=== PATIENT | male | born 1955 | race Caucasian/White ===

== ENCOUNTER 2017-12-31 07:26 | Inpatient (IN) | payer MEDICARE ==
[2017-12-31] MEDS: ASPIRIN 81 MG ENTERIC TAB PO (09:00)
[2017-12-31] MEDS: NS 1,000 ML IV ×2 (09:17→14:01)
[2017-12-31] MEDS: ONDANSETRON 4MG/2ML VIAL (J2405) IV ×3 (09:17→21:05)
[2017-12-31 09:38] LABS: BASO % 0.4 % (0.0-1.0); EOS # 0.2 10^3/uL (0.0-0.50); EOS % 2.9 % (0.0-3.0); HEMOGLOBIN 15.1 g/dl (13.5-17.5); IMMATURE GRANULOCYTE % 0.1 % (0-3.0); LYMPH % 11.5 % (24.0-44.0); MEAN CORPUSCULAR HEMOGLOBIN 29.1 pg (27.0-33.0); MEAN CORPUSCULAR HGB CONC 33.6 g/dl (32.0-36.5); MEAN CORPUSCULAR VOLUME 86.7 fl (80.0-96.0); MONO # 0.7 10^3/uL (0.0-0.8); NEUTROPHILS # 6.4 10^3/uL (1.8-7.7); NEUTROPHILS % 77.1 % (36.0-66.0); PLATELET COUNT, AUTOMATED 307 10^3/uL (150-450); RED BLOOD COUNT 5.19 10^6/uL (4.30-6.10); RED CELL DISTRIBUTION WIDTH 13.2 % (11.5-14.5); WHITE BLOOD COUNT 8.3 10^3/uL (4.0-10.0)
[2017-12-31 09:53] LABS: INR 1.03; PROTHROMBIN TIME 13.6 SECONDS (12.4-14.5)
[2017-12-31 09:54] LABS: PARTIAL THROMBOPLASTIN TIME 24.1 SECONDS (26.8-37.9)
[2017-12-31 09:56] LABS: ALBUMIN 3.6 GM/DL (3.2-5.2); ALBUMIN/GLOBULIN RATIO 0.73 (1.00-1.93); ALKALINE PHOSPHATASE 140 U/L (45-117); ALT/SGPT 33 U/L (12-78); ANION GAP 9 MEQ/L (8-16); AST/SGOT 20 U/L (7-37); BILIRUBIN,DIRECT 0.1 MG/DL (0.0-0.2); BILIRUBIN,TOTAL 0.6 MG/DL (0.2-1.0); BLOOD UREA NITROGEN 43 MG/DL (7-18); CALCIUM LEVEL 9.9 MG/DL (8.8-10.2); CARBON DIOXIDE LEVEL 25 MEQ/L (21-32); CHLORIDE LEVEL 103 MEQ/L (98-107); CPK CREATINE PHOSPHOKINASE 46 U/L (39-308); CREATININE FOR GFR 2.46 MG/DL (0.70-1.30); GLOMERULAR FILTRATION RATE 28.5 (>49); GLUCOSE, FASTING 124 MG/DL (70-100); LIPASE 348 U/L (73-393); POTASSIUM SERUM 3.3 MEQ/L (3.5-5.1); SODIUM LEVEL 137 MEQ/L (136-145); TOTAL PROTEIN 8.5 GM/DL (6.4-8.2); TROPONIN I < 0.02 NG/ML (< 0.10)
[2017-12-31 09:57] LABS: CK-MB VALUE MASS < 1.0 NG/ML (<3.6); MB/CK RELATIVE INDEX 2.17 (< OR =4)
[2017-12-31] MEDS: GASTROGRAFIN SOLUTION 30ML (Q9963) PO ×4 (10:20→11:50)
[2017-12-31 10:44] LABS: LACTIC ACID SEPSIS PROTOCOL 1.7 MMOL/L (0.4-2.0)
[2017-12-31] MEDS ORDERED: GASTROGRAFIN SOLUTION 30ML (Q9963) PO (10:50)
[2017-12-31] MEDS: MORPHINE 4 MG/ML 1ML VIAL/SYRINGE (J2270) IV (14:01)
[2017-12-31] MEDS ORDERED: IPRATROPIUM 0.5MG/ALBUTEROL 2.5MG INH SOL UD 3ML (DUONEB)(J7620) INH (14:45)
[2017-12-31] MEDS ORDERED: hydrOXYzine 25 MG TAB PO (14:45)
[2017-12-31] MEDS ORDERED: GABAPENTIN 300 MG CAP PO (14:45)
[2017-12-31] MEDS: PANTOPRAZOLE 40MG INJ (PROTONIX) (C9113) IV (17:04)
[2017-12-31] MEDS: KCL 20MEQ IN D5/0.45NS 1000ML 1,000 ML IV (17:05)
[2017-12-31] MEDS: PIPERACILLIN/TAZOBACTAM SOD 3.375 GM in D5W MINI-BAG PLUS 50 ML IV ×2 (17:05→21:05)
[2017-12-31] MEDS: cloNIDine 0.1 MG TAB PO (17:24)
[2017-12-31] MEDS: METOPROLOL TART 12.5 MG PER 1/2 TAB PO (22:07)
[2017-12-31] MEDS: SENOKOT S TAB PO (22:07)
[2017-12-31] MEDS: HEPARIN SOD (PORCINE) 5000 UNITS/ML VIAL SC ×2 (22:07→22:08)
[2017-12-31] MEDS: METHOCARBAMOL 500 MG TAB PO (22:07)
[2017-12-31] MEDS: CHLORTHALIDONE 12.5MG PER 1/2 TABLET PO (22:07)
[2017-12-31] MEDS: amLODIPine 5 MG TAB PO (22:08)
[2017-12-31] MEDS: ACETAMINOPHEN TAB 650MG DOSE (2X325MG) PO (22:09)
[2018-01-01] MEDS: KCL 20MEQ IN D5/0.45NS 1000ML 1,000 ML IV ×3 (03:13→14:53)
[2018-01-01] MEDS: PIPERACILLIN/TAZOBACTAM SOD 3.375 GM in D5W MINI-BAG PLUS 50 ML IV ×4 (03:22→21:56)
[2018-01-01] MEDS: HEPARIN SOD (PORCINE) 5000 UNITS/ML VIAL SC ×3 (05:11→21:56)
[2018-01-01] MEDS: ONDANSETRON 4MG/2ML VIAL (J2405) IV ×2 (05:39→12:11)
[2018-01-01 06:40] LABS: HEMATOCRIT 37.6 % (42.0-52.0); MEAN CORPUSCULAR HEMOGLOBIN 29.6 pg (27.0-33.0); PLATELET COUNT, AUTOMATED 263 10^3/uL (150-450); RED BLOOD COUNT 4.32 10^6/uL (4.30-6.10); RED CELL DISTRIBUTION WIDTH 13.2 % (11.5-14.5); WHITE BLOOD COUNT 6.7 10^3/uL (4.0-10.0)
[2018-01-01 06:58] LABS: HEMOGLOBIN 12.8 g/dl (13.5-17.5)
[2018-01-01 07:00] LABS: ANION GAP 8 MEQ/L (8-16); BLOOD UREA NITROGEN 45 MG/DL (7-18); CALCIUM LEVEL 9.1 MG/DL (8.8-10.2); CARBON DIOXIDE LEVEL 26 MEQ/L (21-32); CHLORIDE LEVEL 105 MEQ/L (98-107); CREATININE FOR GFR 2.78 MG/DL (0.70-1.30); GLOMERULAR FILTRATION RATE 24.8 (>49); GLUCOSE, FASTING 118 MG/DL (70-100); POTASSIUM SERUM 3.9 MEQ/L (3.5-5.1); SODIUM LEVEL 139 MEQ/L (136-145)
[2018-01-01 07:03] LABS: LACTIC ACID SEPSIS PROTOCOL 0.9 MMOL/L (0.4-2.0)
[2018-01-01] MEDS: MORPHINE 4 MG/ML 1ML VIAL/SYRINGE (J2270) IV ×4 (08:29→22:08)
[2018-01-01] MEDS: SENOKOT S TAB PO ×2 (09:23→21:55)
[2018-01-01] MEDS: ASPIRIN 81 MG ENTERIC TAB PO (09:23)
[2018-01-01] MEDS: LISINOPRIL 40 MG TAB PO (09:23)
[2018-01-01] MEDS: METOPROLOL TART 12.5 MG PER 1/2 TAB PO ×2 (09:23→21:56)
[2018-01-01] MEDS: MELOXICAM (MOBIC) 7.5 MG TAB PO (09:24)
[2018-01-01] MEDS: PANTOPRAZOLE 40MG INJ (PROTONIX) (C9113) IV (09:24)
[2018-01-01 14:09] LABS: BEDSIDE GLUCOSE 113 MG/DL (80-115)
[2018-01-01] MEDS: METHOCARBAMOL 500 MG TAB PO (21:55)
[2018-01-01] MEDS: amLODIPine 5 MG TAB PO (21:55)
[2018-01-01] MEDS: CHLORTHALIDONE 12.5MG PER 1/2 TABLET PO (21:56)
[2018-01-02] MEDS: ONDANSETRON 4MG/2ML VIAL (J2405) IV ×2 (00:37→08:06)
[2018-01-02] MEDS: KCL 20MEQ IN D5/0.45NS 1000ML 1,000 ML IV ×4 (00:37→16:56)
[2018-01-02] MEDS: PIPERACILLIN/TAZOBACTAM SOD 3.375 GM in D5W MINI-BAG PLUS 50 ML IV ×4 (04:33→21:15)
[2018-01-02] MEDS: HEPARIN SOD (PORCINE) 5000 UNITS/ML VIAL SC ×3 (05:05→21:15)
[2018-01-02 06:19] LABS: HEMATOCRIT 33.7 % (42.0-52.0); HEMOGLOBIN 11.5 g/dl (13.5-17.5); MEAN CORPUSCULAR HEMOGLOBIN 29.4 pg (27.0-33.0); MEAN CORPUSCULAR HGB CONC 34.1 g/dl (32.0-36.5); MEAN CORPUSCULAR VOLUME 86.2 fl (80.0-96.0); PLATELET COUNT, AUTOMATED 221 10^3/uL (150-450); RED BLOOD COUNT 3.91 10^6/uL (4.30-6.10); RED CELL DISTRIBUTION WIDTH 13.1 % (11.5-14.5); WHITE BLOOD COUNT 5.6 10^3/uL (4.0-10.0)
[2018-01-02 06:40] LABS: ANION GAP 6 MEQ/L (8-16); BLOOD UREA NITROGEN 31 MG/DL (7-18); CALCIUM LEVEL 8.9 MG/DL (8.8-10.2); CARBON DIOXIDE LEVEL 26 MEQ/L (21-32); CHLORIDE LEVEL 105 MEQ/L (98-107); CREATININE FOR GFR 2.32 MG/DL (0.70-1.30); GLOMERULAR FILTRATION RATE 30.5 (>49); GLUCOSE, FASTING 114 MG/DL (70-100); POTASSIUM SERUM 3.5 MEQ/L (3.5-5.1); SODIUM LEVEL 137 MEQ/L (136-145)
[2018-01-02] MEDS: ASPIRIN 81 MG ENTERIC TAB PO (08:04)
[2018-01-02] MEDS: PANTOPRAZOLE 40MG INJ (PROTONIX) (C9113) IV (08:06)
[2018-01-02] MEDS: LISINOPRIL 40 MG TAB PO (08:06)
[2018-01-02] MEDS: METOPROLOL TART 12.5 MG PER 1/2 TAB PO ×2 (08:08→21:15)
[2018-01-02] MEDS: SENOKOT S TAB PO ×2 (08:08→21:00)
[2018-01-02] MEDS: MELOXICAM (MOBIC) 7.5 MG TAB PO (08:17)
[2018-01-02] MEDS: METHOCARBAMOL 500 MG TAB PO (21:14)
[2018-01-02] MEDS: amLODIPine 5 MG TAB PO (21:14)
[2018-01-02] MEDS: CHLORTHALIDONE 12.5MG PER 1/2 TABLET PO (21:14)
[2018-01-03] MEDS: PIPERACILLIN/TAZOBACTAM SOD 3.375 GM in D5W MINI-BAG PLUS 50 ML IV ×4 (03:25→21:00)
[2018-01-03] MEDS: KCL 20MEQ IN D5/0.45NS 1000ML 1,000 ML IV ×2 (03:25→09:32)
[2018-01-03 06:12] LABS: HEMATOCRIT 37.1 % (42.0-52.0); HEMOGLOBIN 12.5 g/dl (13.5-17.5); MEAN CORPUSCULAR HEMOGLOBIN 28.7 pg (27.0-33.0); MEAN CORPUSCULAR HGB CONC 33.7 g/dl (32.0-36.5); MEAN CORPUSCULAR VOLUME 85.3 fl (80.0-96.0); PLATELET COUNT, AUTOMATED 261 10^3/uL (150-450); RED BLOOD COUNT 4.35 10^6/uL (4.30-6.10); RED CELL DISTRIBUTION WIDTH 12.7 % (11.5-14.5)
[2018-01-03 06:34] LABS: ANION GAP 5 MEQ/L (8-16); BLOOD UREA NITROGEN 16 MG/DL (7-18); CALCIUM LEVEL 9.1 MG/DL (8.8-10.2); CARBON DIOXIDE LEVEL 27 MEQ/L (21-32); CHLORIDE LEVEL 106 MEQ/L (98-107); CREATININE FOR GFR 1.83 MG/DL (0.70-1.30); GLOMERULAR FILTRATION RATE 40.1 (>49); GLUCOSE, FASTING 124 MG/DL (70-100); POTASSIUM SERUM 3.8 MEQ/L (3.5-5.1); SODIUM LEVEL 138 MEQ/L (136-145)
[2018-01-03] MEDS: HEPARIN SOD (PORCINE) 5000 UNITS/ML VIAL SC ×3 (06:36→21:00)
[2018-01-03] MEDS: SENOKOT S TAB PO ×2 (09:00→20:59)
[2018-01-03] MEDS: ASPIRIN 81 MG ENTERIC TAB PO (09:00)
[2018-01-03] MEDS: METOPROLOL TART 12.5 MG PER 1/2 TAB PO ×2 (09:33→20:59)
[2018-01-03] MEDS: LISINOPRIL 40 MG TAB PO (09:33)
[2018-01-03] MEDS: MELOXICAM (MOBIC) 7.5 MG TAB PO (09:34)
[2018-01-03] MEDS: PANTOPRAZOLE 40MG INJ (PROTONIX) (C9113) IV (09:34)
[2018-01-03] MEDS: ONDANSETRON 4MG/2ML VIAL (J2405) IV (09:42)
[2018-01-03] MEDS: CHLORTHALIDONE 12.5MG PER 1/2 TABLET PO (20:58)
[2018-01-03] MEDS: amLODIPine 5 MG TAB PO (20:59)
[2018-01-03] MEDS: METHOCARBAMOL 500 MG TAB PO (20:59)
[2018-01-04] MEDS: PIPERACILLIN/TAZOBACTAM SOD 3.375 GM in D5W MINI-BAG PLUS 50 ML IV ×2 (03:29→09:54)
[2018-01-04] MEDS: KCL 20MEQ IN D5/0.45NS 1000ML 1,000 ML IV (05:24)
[2018-01-04] MEDS: HEPARIN SOD (PORCINE) 5000 UNITS/ML VIAL SC (05:24)
[2018-01-04 06:33] LABS: HEMATOCRIT 35.3 % (42.0-52.0); HEMOGLOBIN 11.9 g/dl (13.5-17.5); MEAN CORPUSCULAR HEMOGLOBIN 29.2 pg (27.0-33.0); MEAN CORPUSCULAR HGB CONC 33.7 g/dl (32.0-36.5); MEAN CORPUSCULAR VOLUME 86.5 fl (80.0-96.0); PLATELET COUNT, AUTOMATED 252 10^3/uL (150-450); RED BLOOD COUNT 4.08 10^6/uL (4.30-6.10); RED CELL DISTRIBUTION WIDTH 12.6 % (11.5-14.5); WHITE BLOOD COUNT 5.9 10^3/uL (4.0-10.0)
[2018-01-04 06:45] LABS: ANION GAP 7 MEQ/L (8-16); BLOOD UREA NITROGEN 9 MG/DL (7-18); CALCIUM LEVEL 8.6 MG/DL (8.8-10.2); CARBON DIOXIDE LEVEL 25 MEQ/L (21-32); CHLORIDE LEVEL 108 MEQ/L (98-107); CREATININE FOR GFR 1.73 MG/DL (0.70-1.30); GLOMERULAR FILTRATION RATE 42.8 (>49); GLUCOSE, FASTING 99 MG/DL (70-100); POTASSIUM SERUM 3.5 MEQ/L (3.5-5.1); SODIUM LEVEL 140 MEQ/L (136-145)
[2018-01-04] MEDS: PANTOPRAZOLE 40MG INJ (PROTONIX) (C9113) IV (09:54)
[2018-01-04] MEDS: ASPIRIN 81 MG ENTERIC TAB PO (09:54)
[2018-01-04] MEDS: SENOKOT S TAB PO (09:54)
[2018-01-04] MEDS: MELOXICAM (MOBIC) 7.5 MG TAB PO (09:54)
[2018-01-04] MEDS: LISINOPRIL 40 MG TAB PO (09:54)
[2018-01-04] MEDS: METOPROLOL TART 12.5 MG PER 1/2 TAB PO (09:54)
== END 2018-01-04 12:21 | disposition home or self-care (01) | DRG 390 ==
LOC: M ED 07:26 → M ED INP 14:43 → M MSPAV 16:15
DX: K56.600 Partial intestinal obstruction, unspecified as to cause (principal); N18.9 Chronic kidney disease, unspecified

== ENCOUNTER 2018-01-27 05:49 | Day surgery (SDC) | payer MEDICARE ==
[2018-01-27] MEDS: LR 1,000 ML IV ×2 (06:50→08:31)
[2018-01-27] MEDS ORDERED: PROPOFOL 200 MG/20 ML VIAL As Ordered (07:30)
[2018-01-27] MEDS ORDERED: ROCURONIUM BROMIDE 50 MG/5 ML VIAL As Ordered (07:30)
[2018-01-27] MEDS ORDERED: LIDOCAINE 2% INJ 100 MG/5 ML SDV (FOR ANES.) As Ordered (07:30)
[2018-01-27] MEDS ORDERED: KETOROLAC 60 MG/2 ML VIAL (J1885) As Ordered (07:31)
[2018-01-27] MEDS ORDERED: dexameTHASONE 4 MG/ML 1ML VIAL (J1100) As Ordered (07:31)
[2018-01-27] MEDS ORDERED: fentaNYL 100 MCG/2 ML INJECTION (J3010) As Ordered ×2 (07:31→08:47)
[2018-01-27] MEDS ORDERED: ONDANSETRON 4MG/2ML VIAL (J2405) As Ordered ×2 (07:31→08:46)
[2018-01-27] MEDS ORDERED: METOCLOPRAMIDE INJ 10MG/2ML VIAL (J2765) As Ordered (07:31)
[2018-01-27] MEDS ORDERED: MIDAZOLAM INJ 2 MG/2 ML VIAL (J2250) As Ordered (07:32)
[2018-01-27] MEDS: BUPIVACAINE/EPIN 0.25% 30 ML VIAL As Ordered (08:13)
[2018-01-27] MEDS ORDERED: GLYCOPYRROLATE INJ 0.2 MG/ML 2 ML VIAL As Ordered ×2 (08:18)
[2018-01-27] MEDS ORDERED: NEOSTIGMINE 10 MG/10 ML VIAL (J2710) As Ordered (08:18)
[2018-01-27] MEDS ORDERED: MEPERIDINE INJ 25 MG/ML VIAL (J2175) As Ordered (08:47)
[2018-01-27] MEDS: MEPERIDINE INJ 25 MG/ML VIAL (J2175) IV ×2 (08:50→08:55)
[2018-01-27] MEDS: ONDANSETRON 4MG/2ML VIAL (J2405) IV (08:50)
[2018-01-27] MEDS: fentaNYL 100 MCG/2 ML INJECTION (J3010) IV ×4 (08:50→09:05)
[2018-01-27] MEDS ORDERED: METOCLOPRAMIDE INJ 10MG/2ML VIAL (J2765) IV (09:00)
[2018-01-27] MEDS ORDERED: NORCO, ANEXSIA 5/325MG TABLET (HYDROcodone/ACETAMINOPHEN) PO (09:00)
[2018-01-27] MEDS ORDERED: ePHEDrine SULFATE 25 MG/5 ML(5MG/ML) SYRINGE As Ordered (09:11)
[2018-01-27] MEDS: MORPHINE 10 MG/ML 1ML VIAL (J2270) IV ×5 (09:25→09:45)
== END 2018-01-27 12:50 | disposition home or self-care (01) ==
LOC: M SDC 05:49
DX: K42.0 Umbilical hernia with obstruction, without gangrene (principal); I10 Essential (primary) hypertension; E78.5 Hyperlipidemia, unspecified; N18.9 Chronic kidney disease, unspecified; K21.9 Gastro-esophageal reflux disease without esophagitis; Z79.82 Long term (current) use of aspirin; Z79.899 Other long term (current) drug therapy; J45.909 Unspecified asthma, uncomplicated
CPT/HCPCS: 49653

== ENCOUNTER 2018-02-22 10:06 | Inpatient (IN) | payer MEDICARE ==
[2018-02-22] MEDS: LR 1,000 ML IV ×3 (11:55→17:57)
[2018-02-22] MEDS: TRANEXAMIC ACID 100 MG/ML 10ML VIAL As Ordered (13:12)
[2018-02-22] MEDS: EPINEPHrine INJ 1 MG/ML 1ML AMP As Ordered (13:12)
[2018-02-22] MEDS ORDERED: ONDANSETRON 4MG/2ML VIAL (J2405) As Ordered (13:13)
[2018-02-22] MEDS ORDERED: PROPOFOL 200 MG/20 ML VIAL As Ordered (13:13)
[2018-02-22] MEDS: ceFAZolin 1GM INJ (J0690 PER 500MG) As Ordered (13:13)
[2018-02-22] MEDS ORDERED: MIDAZOLAM INJ 2 MG/2 ML VIAL (J2250) As Ordered (13:13)
[2018-02-22] MEDS ORDERED: BUPIVACAINE/DEXTROSE 0.75% 2 ML AMP As Ordered (13:13)
[2018-02-22] MEDS ORDERED: dexameTHASONE 4 MG/ML 1ML VIAL (J1100) As Ordered (13:13)
[2018-02-22] MEDS ORDERED: fentaNYL 100 MCG/2 ML INJECTION (J3010) As Ordered (13:13)
[2018-02-22] MEDS ORDERED: ePHEDrine SULFATE 25 MG/5 ML(5MG/ML) SYRINGE As Ordered (13:48)
[2018-02-22] MEDS ORDERED: PHENYLephrine HCL 500 MCG/5 ML (100MCG/ML) SYRINGE (J2370) As Ordered (13:48)
[2018-02-22] MEDS ORDERED: MORPHINE 1MG/ML IN 0.9% NACL 100ML IV BAG As Ordered (14:05)
[2018-02-22] MEDS ORDERED: ONDANSETRON 4MG/2ML VIAL (J2405) IV ×2 (14:45)
[2018-02-22] MEDS ORDERED: NALOXONE INJ 0.4 MG/1 ML VIAL (J2310) IV (14:45)
[2018-02-22] MEDS ORDERED: HYDROMORPHONE HCL 0.5 MG/ 0.5 ML SYRINGE (J1170 PER 1) IV (14:45)
[2018-02-22] MEDS ORDERED: NALBUPHINE HCL 10 MG/ML AMP (J2300) IV (14:45)
[2018-02-22] MEDS ORDERED: MORPHINE 1MG/ML IN 0.9% NACL 100ML IV BAG IV (14:45)
[2018-02-22] MEDS ORDERED: EPIDURAL/PCA KEYS XX (14:45)
[2018-02-22] MEDS ORDERED: fentaNYL 100 MCG/2 ML INJECTION (J3010) IV (14:45)
[2018-02-22] MEDS ORDERED: PERCOCET 5MG/325MG TAB PO ×3 (14:45→20:30)
[2018-02-22] MEDS ORDERED: diphenhydrAMINE INJ 50MG/ML VIAL (J1200) IV (14:45)
[2018-02-22] MEDS ORDERED: FLEET ENEMA PR (14:45)
[2018-02-22] MEDS: ONDANSETRON 4MG/2ML VIAL (J2405) IV ×3 (17:56→21:00)
[2018-02-22] MEDS ORDERED: amLODIPine 5 MG TAB PO (21:00)
[2018-02-22] MEDS ORDERED: LISINOPRIL 20 MG TAB PO (21:00)
[2018-02-22] MEDS: cloNIDine 0.1 MG TAB PO (22:03)
[2018-02-22] MEDS: NORCO, ANEXSIA 5/325MG TABLET (HYDROcodone/ACETAMINOPHEN) PO (22:03)
[2018-02-22] MEDS: amLODIPine 10 MG TAB PO (22:03)
[2018-02-22] MEDS: METOPROLOL TART 12.5 MG PER 1/2 TAB PO (22:04)
[2018-02-23] MEDS: LR 1,000 ML IV (04:05)
[2018-02-23] MEDS: NORCO, ANEXSIA 5/325MG TABLET (HYDROcodone/ACETAMINOPHEN) PO ×4 (05:54→17:50)
[2018-02-23 06:49] LABS: HEMATOCRIT 33.4 % (42.0-52.0); HEMOGLOBIN 11.1 g/dl (13.5-17.5); MEAN CORPUSCULAR HEMOGLOBIN 28.8 pg (27.0-33.0); MEAN CORPUSCULAR HGB CONC 33.2 g/dl (32.0-36.5); MEAN CORPUSCULAR VOLUME 86.5 fl (80.0-96.0); PLATELET COUNT, AUTOMATED 242 10^3/uL (150-450); RED BLOOD COUNT 3.86 10^6/uL (4.30-6.10); RED CELL DISTRIBUTION WIDTH 13.6 % (11.5-14.5); WHITE BLOOD COUNT 7.7 10^3/uL (4.0-10.0)
[2018-02-23] MEDS: OMEPRAZOLE 20 MG CAP PO (06:57)
[2018-02-23 07:11] LABS: ANION GAP 8 MEQ/L (8-16); BLOOD UREA NITROGEN 22 MG/DL (7-18); CALCIUM LEVEL 9.2 MG/DL (8.8-10.2); CARBON DIOXIDE LEVEL 28 MEQ/L (21-32); CHLORIDE LEVEL 105 MEQ/L (98-107); CREATININE FOR GFR 1.26 MG/DL (0.70-1.30); GLOMERULAR FILTRATION RATE > 60.0 (>49); GLUCOSE, FASTING 120 MG/DL (70-100); SODIUM LEVEL 141 MEQ/L (136-145)
[2018-02-23] MEDS ORDERED: OMEPRAZOLE 20 MG CAP PO (09:00)
[2018-02-23] MEDS: MOM 30ML SUSPENSION UDC PO (09:14)
[2018-02-23] MEDS: MIRALAX *UNIT DOSE* 17GM PACKET PO (09:15)
[2018-02-23] MEDS: SENOKOT S TAB PO ×2 (09:18→20:09)
[2018-02-23] MEDS: METOPROLOL TART 12.5 MG PER 1/2 TAB PO ×2 (09:19→20:09)
[2018-02-23] MEDS: cloNIDine 0.1 MG TAB PO ×3 (09:20→20:09)
[2018-02-23] MEDS: RIVAROXABAN 10 MG TAB (XARELTO) PO (17:49)
[2018-02-23] MEDS: ONDANSETRON 4MG/2ML VIAL (J2405) IV (20:09)
[2018-02-23] MEDS: amLODIPine 10 MG TAB PO (20:09)
[2018-02-23] MEDS ORDERED: hydrOXYzine 25 MG TAB PO (20:30)
[2018-02-24] MEDS: NORCO, ANEXSIA 5/325MG TABLET (HYDROcodone/ACETAMINOPHEN) PO ×5 (01:24→20:05)
[2018-02-24 06:44] LABS: HEMATOCRIT 30.3 % (42.0-52.0); MEAN CORPUSCULAR HEMOGLOBIN 28.4 pg (27.0-33.0); MEAN CORPUSCULAR VOLUME 86.1 fl (80.0-96.0); PLATELET COUNT, AUTOMATED 197 10^3/uL (150-450); RED BLOOD COUNT 3.52 10^6/uL (4.30-6.10); RED CELL DISTRIBUTION WIDTH 13.4 % (11.5-14.5); WHITE BLOOD COUNT 7.4 10^3/uL (4.0-10.0)
[2018-02-24] MEDS: ONDANSETRON 4 MG TAB (S0181) PO ×2 (10:00→17:53)
[2018-02-24] MEDS: METOPROLOL TART 12.5 MG PER 1/2 TAB PO ×2 (10:42→20:05)
[2018-02-24] MEDS: LISINOPRIL 20 MG TAB PO ×2 (10:43→20:05)
[2018-02-24] MEDS: MOM 30ML SUSPENSION UDC PO (10:43)
[2018-02-24] MEDS: MIRALAX *UNIT DOSE* 17GM PACKET PO (10:43)
[2018-02-24] MEDS: OMEPRAZOLE 20 MG CAP PO (10:44)
[2018-02-24] MEDS: SENOKOT S TAB PO ×2 (10:44→20:05)
[2018-02-24] MEDS: cloNIDine 0.1 MG TAB PO ×3 (10:50→20:04)
[2018-02-24] MEDS: NS 500 ML IV (11:24)
[2018-02-24] MEDS ORDERED: IPRATROPIUM 0.5MG/ALBUTEROL 2.5MG INH SOL UD 3ML (DUONEB)(J7620) NEB (14:45)
[2018-02-24] MEDS: RIVAROXABAN 10 MG TAB (XARELTO) PO (17:47)
[2018-02-24] MEDS: amLODIPine 10 MG TAB PO (20:04)
[2018-02-25] MEDS: NORCO, ANEXSIA 5/325MG TABLET (HYDROcodone/ACETAMINOPHEN) PO ×4 (05:04→21:05)
[2018-02-25 06:39] LABS: HEMATOCRIT 30.4 % (42.0-52.0); MEAN CORPUSCULAR HGB CONC 32.9 g/dl (32.0-36.5); MEAN CORPUSCULAR VOLUME 88.1 fl (80.0-96.0); PLATELET COUNT, AUTOMATED 180 10^3/uL (150-450); RED BLOOD COUNT 3.45 10^6/uL (4.30-6.10); RED CELL DISTRIBUTION WIDTH 13.3 % (11.5-14.5); WHITE BLOOD COUNT 7.2 10^3/uL (4.0-10.0)
[2018-02-25] MEDS: METOPROLOL TART 12.5 MG PER 1/2 TAB PO ×3 (06:47→21:05)
[2018-02-25 06:53] LABS: ANION GAP 7 MEQ/L (8-16); BLOOD UREA NITROGEN 10 MG/DL (7-18); CALCIUM LEVEL 8.6 MG/DL (8.8-10.2); CARBON DIOXIDE LEVEL 29 MEQ/L (21-32); CHLORIDE LEVEL 102 MEQ/L (98-107); CREATININE FOR GFR 1.06 MG/DL (0.70-1.30); GLOMERULAR FILTRATION RATE > 60.0 (>49); GLUCOSE, FASTING 121 MG/DL (70-100); POTASSIUM SERUM 3.5 MEQ/L (3.5-5.1); SODIUM LEVEL 138 MEQ/L (136-145)
[2018-02-25] MEDS: MIRALAX *UNIT DOSE* 17GM PACKET PO (09:00)
[2018-02-25] MEDS: MOM 30ML SUSPENSION UDC PO (09:00)
[2018-02-25] MEDS: SENOKOT S TAB PO ×2 (09:28→21:04)
[2018-02-25] MEDS: cloNIDine 0.1 MG TAB PO ×3 (09:29→21:04)
[2018-02-25] MEDS: LISINOPRIL 20 MG TAB PO ×2 (09:29→21:04)
[2018-02-25] MEDS: OMEPRAZOLE 20 MG CAP PO (09:29)
[2018-02-25] MEDS: ONDANSETRON 4 MG TAB (S0181) PO (11:24)
[2018-02-25] MEDS: ACETAMINOPHEN TAB 650MG DOSE (2X325MG) PO (16:06)
[2018-02-25] MEDS: RIVAROXABAN 10 MG TAB (XARELTO) PO (17:13)
[2018-02-25] MEDS: amLODIPine 10 MG TAB PO (21:05)
[2018-02-26] MEDS: ACETAMINOPHEN TAB 650MG DOSE (2X325MG) PO ×3 (00:13→11:13)
[2018-02-26] MEDS: NORCO, ANEXSIA 5/325MG TABLET (HYDROcodone/ACETAMINOPHEN) PO ×4 (03:33→13:45)
[2018-02-26] MEDS: METOPROLOL TART 12.5 MG PER 1/2 TAB PO (05:51)
[2018-02-26 06:54] LABS: HEMATOCRIT 30.8 % (42.0-52.0); HEMOGLOBIN 10.2 g/dl (13.5-17.5); MEAN CORPUSCULAR HEMOGLOBIN 28.7 pg (27.0-33.0); MEAN CORPUSCULAR HGB CONC 33.1 g/dl (32.0-36.5); MEAN CORPUSCULAR VOLUME 86.8 fl (80.0-96.0); PLATELET COUNT, AUTOMATED 204 10^3/uL (150-450); RED BLOOD COUNT 3.55 10^6/uL (4.30-6.10); RED CELL DISTRIBUTION WIDTH 13.1 % (11.5-14.5); WHITE BLOOD COUNT 6.3 10^3/uL (4.0-10.0)
[2018-02-26 07:12] LABS: ANION GAP 6 MEQ/L (8-16); BLOOD UREA NITROGEN 9 MG/DL (7-18); CALCIUM LEVEL 8.8 MG/DL (8.8-10.2); CARBON DIOXIDE LEVEL 31 MEQ/L (21-32); CHLORIDE LEVEL 103 MEQ/L (98-107); CREATININE FOR GFR 1.01 MG/DL (0.70-1.30); GLOMERULAR FILTRATION RATE > 60.0 (>49); GLUCOSE, FASTING 98 MG/DL (70-100); POTASSIUM SERUM 3.5 MEQ/L (3.5-5.1); SODIUM LEVEL 140 MEQ/L (136-145)
[2018-02-26] MEDS: MOM 30ML SUSPENSION UDC PO ×2 (08:47→08:50)
[2018-02-26] MEDS: SENOKOT S TAB PO (08:47)
[2018-02-26] MEDS: MIRALAX *UNIT DOSE* 17GM PACKET PO (08:50)
[2018-02-26] MEDS: LISINOPRIL 20 MG TAB PO (08:51)
[2018-02-26] MEDS: cloNIDine 0.1 MG TAB PO (08:51)
[2018-02-26] MEDS: OMEPRAZOLE 20 MG CAP PO (08:51)
[2018-02-26] MEDS: RIVAROXABAN 10 MG TAB (XARELTO) PO (14:54)
[2018-02-26] MEDS: ONDANSETRON 4 MG TAB (S0181) PO (15:19)
== END 2018-02-26 15:45 | disposition home health service (06) | DRG 470 ==
LOC: M OR 10:06 → M MS5PR 15:10
PROC: 0SRB02A Replacement of Left Hip Joint with Metal on Polyethylene Synthetic Substitute, Uncemented, Open Approach (ICD-10-PCS; principal; 2018-02-22 12:28)
DX: M16.12 Unilateral primary osteoarthritis, left hip (principal); D62 Acute posthemorrhagic anemia; I10 Essential (primary) hypertension; E78.5 Hyperlipidemia, unspecified; J45.909 Unspecified asthma, uncomplicated; L29.9 Pruritus, unspecified; E66.9 Obesity, unspecified; K21.9 Gastro-esophageal reflux disease without esophagitis; M54.9 Dorsalgia, unspecified; Z98.41 Cataract extraction status, right eye; Z98.42 Cataract extraction status, left eye; Z79.82 Long term (current) use of aspirin; Z79.899 Other long term (current) drug therapy; Z68.33 Body mass index [BMI] 33.0-33.9, adult; R61 Generalized hyperhidrosis

== ENCOUNTER → 2018-03-16 | Outpatient (REF) | payer MEDICARE ==
[2018-03-16 10:45] LABS: HEMATOCRIT 37.1 % (42.0-52.0); HEMOGLOBIN 12.3 g/dl (13.5-17.5); MEAN CORPUSCULAR HEMOGLOBIN 29.1 pg (27.0-33.0); MEAN CORPUSCULAR HGB CONC 33.2 g/dl (32.0-36.5); MEAN CORPUSCULAR VOLUME 87.9 fl (80.0-96.0); PLATELET COUNT, AUTOMATED 368 10^3/uL (150-450); RED BLOOD COUNT 4.22 10^6/uL (4.30-6.10); RED CELL DISTRIBUTION WIDTH 13.7 % (11.5-14.5); WHITE BLOOD COUNT 5.1 10^3/uL (4.0-10.0)
[2018-03-16 11:28] LABS: ANION GAP 9 MEQ/L (8-16); BLOOD UREA NITROGEN 14 MG/DL (7-18); CALCIUM LEVEL 9.6 MG/DL (8.8-10.2); CARBON DIOXIDE LEVEL 26 MEQ/L (21-32); CHLORIDE LEVEL 104 MEQ/L (98-107); CREATININE FOR GFR 1.18 MG/DL (0.70-1.30); GLOMERULAR FILTRATION RATE > 60.0 (>49); GLUCOSE, FASTING 87 MG/DL (70-100); POTASSIUM SERUM 4.1 MEQ/L (3.5-5.1); SODIUM LEVEL 139 MEQ/L (136-145)
== END ==
LOC: M SHH 10:11
DX: I12.9 Hypertensive chronic kidney disease with stage 1 through stage 4 chronic kidney disease, or unspecified chronic kidney disease (principal); N18.3 Chronic kidney disease, stage 3 (moderate)
CPT/HCPCS: 80048

== ENCOUNTER → 2018-03-29 | Outpatient (REF) | payer MEDICARE ==
[2018-03-29 11:25] LABS: BASO # 0.1 10^3/uL (0.0-0.2); BASO % 1.3 % (0.0-1.0); EOS # 0.3 10^3/uL (0.0-0.50); EOS % 4.7 % (0.0-3.0); HEMATOCRIT 43.1 % (42.0-52.0); HEMOGLOBIN 14.1 g/dl (13.5-17.5); IMMATURE GRANULOCYTE % 0.2 % (0-3.0); LYMPH % 33.7 % (24.0-44.0); MEAN CORPUSCULAR HEMOGLOBIN 28.2 pg (27.0-33.0); MEAN CORPUSCULAR HGB CONC 32.7 g/dl (32.0-36.5); MEAN CORPUSCULAR VOLUME 86.2 fl (80.0-96.0); MONO # 0.5 10^3/uL (0.0-0.8); MONO % 8.8 % (0.0-5.0); NEUTROPHILS % 51.3 % (36.0-66.0); PLATELET COUNT, AUTOMATED 260 10^3/uL (150-450); RED CELL DISTRIBUTION WIDTH 13.8 % (11.5-14.5); WHITE BLOOD COUNT 5.9 10^3/uL (4.0-10.0)
[2018-03-29 12:21] LABS: ANION GAP 10 MEQ/L (8-16); BLOOD UREA NITROGEN 23 MG/DL (7-18); CALCIUM LEVEL 10.1 MG/DL (8.8-10.2); CARBON DIOXIDE LEVEL 27 MEQ/L (21-32); CHLORIDE LEVEL 102 MEQ/L (98-107); CREATININE FOR GFR 1.27 MG/DL (0.70-1.30); GLOMERULAR FILTRATION RATE > 60.0 (>49); GLUCOSE, FASTING 89 MG/DL (70-100); POTASSIUM SERUM 3.6 MEQ/L (3.5-5.1); SODIUM LEVEL 139 MEQ/L (136-145)
== END ==
LOC: M LAB REF 11:06
DX: I12.9 Hypertensive chronic kidney disease with stage 1 through stage 4 chronic kidney disease, or unspecified chronic kidney disease (principal); N18.3 Chronic kidney disease, stage 3 (moderate)
CPT/HCPCS: 80048

== ENCOUNTER 2022-02-26 10:48 | Inpatient (IN) | payer MEDICARE ==
[~2022-02-26] VITALS: Ht 162.6 cm; Wt 84.7 kg
[~2022-02-26 10:48] MED LIST: ACET650T61 PO; AMLO1TAB24 PO; ASPI81TA26 PO; CHLO25TA PO; CLON-412 PO; COMBAER6 INH; HYDR-3363 PO; HYDR-3713 PO; HYDR-4429 PO; LISI40TA4 PO; METH-1164 PO; METO1TAB32 PO; METO25TA4 PO; MM S100C PO; MOBI15TA PO; NEUR300C PO; OMEP1CAP73 PO; TYLE500T78 PO; XARE10TA PO
[2022-02-26] MEDS ORDERED: NS 1,000 ML IV ONE (13:40)
[2022-02-26 13:56] LABS: BASO # 0.1 10^3/uL (0.0-0.2); BASO % 1.3 % (0.0-1.0); EOS # 0.1 10^3/uL (0.0-0.5); EOS % 2.1 % (0.0-3.0); HEMATOCRIT 44.8 % (42.0-52.0); HEMOGLOBIN 15.2 g/dl (13.5-17.5); LYMPH # 1.2 10^3/uL (1.5-5.0); MEAN CORPUSCULAR HEMOGLOBIN 29.8 pg (27.0-33.0); MEAN CORPUSCULAR HGB CONC 33.9 g/dl (32.0-36.5); MEAN CORPUSCULAR VOLUME 87.8 fl (80.0-96.0); MONO # 0.4 10^3/uL (0.0-0.8); MONO % 6.7 % (2.0-8.0); NEUTROPHILS # 3.5 10^3/uL (1.5-8.5); NEUTROPHILS % 66.5 % (36.0-66.0); PLATELET COUNT, AUTOMATED 228 10^3/uL (150-450); WHITE BLOOD COUNT 5.2 10^3/uL (4.0-10.0)
[2022-02-26 14:09] LABS: INR 0.91; PROTHROMBIN TIME 12.6 SECONDS (12.7-14.5)
[2022-02-26 14:10] LABS: PARTIAL THROMBOPLASTIN TIME 27.2 SECONDS (25.9-37.0)
[2022-02-26 14:32] LABS: ALBUMIN 3.4 GM/DL (3.2-5.2); ALT/SGPT 719 U/L (12-78); BILIRUBIN,TOTAL 6.8 MG/DL (0.2-1.0); BLOOD UREA NITROGEN 20 MG/DL (7-18); CALCIUM LEVEL 10.4 MG/DL (8.8-10.2); CARBON DIOXIDE LEVEL 26 MEQ/L (21-32); CHLORIDE LEVEL 103 MEQ/L (98-107); CREATININE FOR GFR 1.36 MG/DL (0.70-1.30); GLOMERULAR FILTRATION RATE 55.8 (>49); GLUCOSE, FASTING 101 MG/DL (70-100); LIPASE 743 U/L (73-393); POTASSIUM SERUM 3.7 MEQ/L (3.5-5.1); SODIUM LEVEL 136 MEQ/L (136-145); TOTAL PROTEIN 7.5 GM/DL (6.4-8.2)
[2022-02-26 15:23] LABS: HEPATITIS B SURFACE ANTIGEN NEGATIVE (NEGATIVE)
[2022-02-26 15:51] LABS: HEPATITIS C VIRUS ABY INDEX < 0.0 INDEX (<0.8)
[2022-02-26 15:52] LABS: HEPATITIS B CORE ANTIBODY IGM NEGATIVE (NEGATIVE)
[2022-02-26 16:03] LABS: CK-MB VALUE MASS < 1.0 NG/ML (<3.6); CPK CREATINE PHOSPHOKINASE 126 U/L (39-308); MB/CK RELATIVE INDEX 0.79 (< OR =4)
[2022-02-26 16:32] LABS: RSV AMPLIFICATION NEGATIVE (NEGATIVE)
[2022-02-26] MEDS ORDERED: PROHANCE 279.3MG/ML 5ML VIAL As Ordered ONE (20:16)
[2022-02-26] MEDS ORDERED: PROHANCE 279.3MG/ML 15ML VIAL As Ordered ONE (20:16)
[2022-02-26] MEDS ORDERED: HYDR1TAB33 PO (22:37)
[2022-02-26] MEDS ORDERED: CHLO25TA PO (22:40)
[2022-02-26] MEDS ORDERED: ASPI81TA26 PO (22:40)
[2022-02-26] MEDS ORDERED: HOME MED LIST COMPLETE! XX SCH (22:40)
[2022-02-26] MEDS ORDERED: VALS1TAB68 PO (22:40)
[2022-02-26] MEDS ORDERED: MOM 30ML SUSPENSION UDC PO PRN (23:50)
[2022-02-26] MEDS ORDERED: ACETAMINOPHEN TAB 650MG DOSE (2X325MG) PO PRN (23:50)
[2022-02-26] MEDS ORDERED: MAALOX 30 ML SUSP *UDC PO PRN (23:50)
[2022-02-27] VITALS (10 sets, daily range): BP systolic 101–169; BP diastolic 55–90
[2022-02-27 00:10] LABS: CK-MB VALUE MASS < 1.0 NG/ML (<3.6); CPK CREATINE PHOSPHOKINASE 131 U/L (39-308); MB/CK RELATIVE INDEX 0.76 (< OR =4)
[2022-02-27] MEDS ORDERED: NS 1,000 ML IV SCH (01:00)
[2022-02-27 05:54] LABS: BASO # 0.1 10^3/uL (0.0-0.2); BASO % 1.2 % (0.0-1.0); EOS # 0.3 10^3/uL (0.0-0.5); EOS % 4.4 % (0.0-3.0); HEMATOCRIT 36.4 % (42.0-52.0); LYMPH # 1.6 10^3/uL (1.5-5.0); LYMPH % 27.8 % (24.0-44.0); MEAN CORPUSCULAR HEMOGLOBIN 30.1 pg (27.0-33.0); MEAN CORPUSCULAR HGB CONC 34.1 g/dl (32.0-36.5); MEAN CORPUSCULAR VOLUME 88.3 fl (80.0-96.0); MONO # 0.5 10^3/uL (0.0-0.8); MONO % 8.2 % (2.0-8.0); NEUTROPHILS # 3.3 10^3/uL (1.5-8.5); PLATELET COUNT, AUTOMATED 193 10^3/uL (150-450); RED BLOOD COUNT 4.12 10^6/uL (4.30-6.10); WHITE BLOOD COUNT 5.7 10^3/uL (4.0-10.0)
[2022-02-27 05:57] LABS: HEMOGLOBIN 12.4 g/dl (13.5-17.5)
[2022-02-27 06:24] LABS: ALBUMIN 2.9 GM/DL (3.2-5.2); ALT/SGPT 616 U/L (12-78); BILIRUBIN,TOTAL 6.2 MG/DL (0.2-1.0); BLOOD UREA NITROGEN 22 MG/DL (7-18); CALCIUM LEVEL 9.5 MG/DL (8.8-10.2); CARBON DIOXIDE LEVEL 24 MEQ/L (21-32); CHLORIDE LEVEL 110 MEQ/L (98-107); CREATININE FOR GFR 1.25 MG/DL (0.70-1.30); GLOMERULAR FILTRATION RATE > 60.0 (>49); GLUCOSE, FASTING 118 MG/DL (70-100); MAGNESIUM LEVEL 1.5 MG/DL (1.8-2.4); POTASSIUM SERUM 3.3 MEQ/L (3.5-5.1); SODIUM LEVEL 141 MEQ/L (136-145); TOTAL PROTEIN 6.1 GM/DL (6.4-8.2)
[2022-02-27 06:34] LABS: CK-MB VALUE MASS < 1.0 NG/ML (<3.6); CPK CREATINE PHOSPHOKINASE 105 U/L (39-308); MB/CK RELATIVE INDEX 0.95 (< OR =4)
[2022-02-27] MEDS: MAG SULF 1GM/100ML (MAG RUN) 2 GM in IV 1 EA IV SCH ×2 (07:42→08:50)
[2022-02-27] MEDS ORDERED: KCL 20MEQ IN D5/0.45NS 1000ML 1,000 ML IV SCH (08:00)
[2022-02-27] MEDS: ASPIRIN 81MG ENTERIC TABLET PO SCH (08:51)
[2022-02-27] MEDS: OMEPRAZOLE 20MG CAP PO SCH (08:51)
[2022-02-27] MEDS: hydrOXYzine 50 MG TAB PO SCH (08:51)
[2022-02-27] MEDS: METOPROLOL TART 25 MG TABLET PO SCH ×2 (08:52→19:57)
[2022-02-27] MEDS ORDERED: CHLORTHALIDONE 12.5MG PER 1/2 TABLET PO SCH (09:00)
[2022-02-27] MEDS ORDERED: VALSARTAN 80 MG TAB (DIOVAN) PO SCH (09:00)
[2022-02-27] MEDS ORDERED: ISOVUE-300 61% 50ML VIAL As Ordered ONE (11:11)
[2022-02-27] MEDS ORDERED: fentaNYL 100 MCG/2 ML INJECTION As Ordered ONE ×2 (11:39→12:35)
[2022-02-27] MEDS ORDERED: SUGAMMADEX SODIUM 500 MG/5 ML VIAL (BRIDION) As Ordered ONE (11:39)
[2022-02-27] MEDS ORDERED: ONDANSETRON 4MG 2ML VIAL As Ordered ONE (11:39)
[2022-02-27] MEDS ORDERED: LIDOCAINE 2% 100MG/5ML SDV (FOR ANES.) As Ordered ONE (11:39)
[2022-02-27] MEDS ORDERED: MIDAZOLAM INJ 2MG/2ML VIAL (J2250 PER 1MG) As Ordered ONE (11:39)
[2022-02-27] MEDS ORDERED: dexameTHASONE 4 MG/ML 1ML VIAL (J1100 PER 1MG) As Ordered ONE (11:39)
[2022-02-27] MEDS ORDERED: propofoL 200 MG/20 ML VIAL As Ordered ONE (11:39)
[2022-02-27] MEDS ORDERED: ROCURONIUM BROMIDE 50 MG/5 ML VIAL As Ordered ONE (11:39)
[2022-02-27] MEDS ORDERED: METOCLOPRAMIDE INJ 10MG/2ML VIAL (J2765 PER 1) As Ordered ONE (11:39)
[2022-02-27] MEDS ORDERED: ePHEDrine SULFATE 25 MG/5 ML(5MG/ML) SYRINGE As Ordered ONE (11:48)
[2022-02-27] MEDS ORDERED: POTASSIUM CHLORIDE 10MEQ SR TABLET PO ONE (13:00)
[2022-02-27] MEDS: PIPERACILLIN/TAZOBACTAM SOD 3.375 GM in D5W MINI-BAG PLUS 50 ML IV SCH ×2 (13:58→19:56)
[2022-02-27] MEDS ORDERED: oxyCODONE 5MG TAB PO PRN (14:05)
[2022-02-27] MEDS ORDERED: fentaNYL 100 MCG/2 ML INJECTION IV PRN (14:05)
[2022-02-27] MEDS ORDERED: ONDANSETRON 4MG 2ML VIAL IV PRN (14:05)
[2022-02-28] VITALS: BP 115/66
[2022-02-28] MEDS: PIPERACILLIN/TAZOBACTAM SOD 3.375 GM in D5W MINI-BAG PLUS 50 ML IV SCH ×4 (01:41→21:30)
[2022-02-28 04:00] VITALS: BP 104/55
[2022-02-28] MEDS: HEPARIN SOD (PORCINE) 5000UNITS/ML 1ML VIAL/SYRINGE SQ SCH ×3 (05:28→21:30)
[2022-02-28 06:58] LABS: HEMATOCRIT 36.3 % (42.0-52.0); HEMOGLOBIN 12.3 g/dl (13.5-17.5); MEAN CORPUSCULAR HGB CONC 33.9 g/dl (32.0-36.5); MEAN CORPUSCULAR VOLUME 88.5 fl (80.0-96.0); PLATELET COUNT, AUTOMATED 191 10^3/uL (150-450); WHITE BLOOD COUNT 8.6 10^3/uL (4.0-10.0)
[2022-02-28 07:39] LABS: ALBUMIN 2.7 GM/DL (3.2-5.2); CALCIUM LEVEL 9.3 MG/DL (8.8-10.2); CREATININE FOR GFR 1.28 MG/DL (0.70-1.30); GLOMERULAR FILTRATION RATE 59.9 (>49); MAGNESIUM LEVEL 1.9 MG/DL (1.8-2.4); PHOSPHORUS LEVEL 2.2 MG/DL (2.5-4.9); POTASSIUM SERUM 3.6 MEQ/L (3.5-5.1); TOTAL PROTEIN 5.9 GM/DL (6.4-8.2)
[2022-02-28 08:00] VITALS: BP 163/78
[2022-02-28] MEDS: ASPIRIN 81MG ENTERIC TABLET PO SCH (08:19)
[2022-02-28] MEDS: CHLORTHALIDONE 12.5MG PER 1/2 TABLET PO SCH (08:19)
[2022-02-28] MEDS: OMEPRAZOLE 20MG CAP PO SCH (08:19)
[2022-02-28] MEDS: METOPROLOL TART 25 MG TABLET PO SCH ×2 (08:20→21:31)
[2022-02-28] MEDS: VALSARTAN 80 MG TAB (DIOVAN) PO SCH (08:20)
[2022-02-28] MEDS: hydrOXYzine 50 MG TAB PO SCH (08:22)
[2022-02-28 10:21] LABS: CHOLESTEROL RISK RATIO 6.833 (<5)
[2022-02-28 12:00] VITALS: BP 153/80
[2022-02-28] MEDS ORDERED: POTASSIUM CHLORIDE 10MEQ SR TABLET PO ONE (16:00)
[2022-02-28 20:00] VITALS: BP 157/84
[2022-02-28] MEDS ORDERED: ATORVASTATIN 20 MG TAB PO SCH (21:00)
[2022-03-01] MEDS: PIPERACILLIN/TAZOBACTAM SOD 3.375 GM in D5W MINI-BAG PLUS 50 ML IV SCH ×2 (02:56→06:20)
[2022-03-01 05:32] VITALS: BP 150/90
[2022-03-01] MEDS: HEPARIN SOD (PORCINE) 5000UNITS/ML 1ML VIAL/SYRINGE SQ SCH (06:20)
[2022-03-01 07:43] LABS: HEMATOCRIT 37.3 % (42.0-52.0); HEMOGLOBIN 12.6 g/dl (13.5-17.5); MEAN CORPUSCULAR HEMOGLOBIN 29.6 pg (27.0-33.0); MEAN CORPUSCULAR HGB CONC 33.8 g/dl (32.0-36.5); MEAN CORPUSCULAR VOLUME 87.8 fl (80.0-96.0); PLATELET COUNT, AUTOMATED 177 10^3/uL (150-450); RED BLOOD COUNT 4.25 10^6/uL (4.30-6.10); WHITE BLOOD COUNT 4.9 10^3/uL (4.0-10.0)
[2022-03-01 08:10] LABS: CALCIUM LEVEL 9.2 MG/DL (8.8-10.2); CREATININE FOR GFR 1.32 MG/DL (0.70-1.30); GLOMERULAR FILTRATION RATE 57.8 (>49); MAGNESIUM LEVEL 1.7 MG/DL (1.8-2.4); PHOSPHORUS LEVEL 1.9 MG/DL (2.5-4.9); POTASSIUM SERUM 3.8 MEQ/L (3.5-5.1)
[2022-03-01 08:20] VITALS: BP 150/90
[2022-03-01] MEDS: CHLORTHALIDONE 12.5MG PER 1/2 TABLET PO SCH (08:20)
[2022-03-01] MEDS: VALSARTAN 80 MG TAB (DIOVAN) PO SCH (08:20)
[2022-03-01] MEDS: hydrOXYzine 50 MG TAB PO SCH (08:21)
[2022-03-01] MEDS: METOPROLOL TART 25 MG TABLET PO SCH (08:21)
[2022-03-01] MEDS: ASPIRIN 81MG ENTERIC TABLET PO SCH (08:21)
[2022-03-01] MEDS: OMEPRAZOLE 20MG CAP PO SCH (08:21)
[2022-03-01] MEDS ORDERED: CLOPIDOGREL 75 MG TAB PO SCH (09:00)
[2022-03-01] MEDS ORDERED: CIPR-249 PO (10:41)
[2022-03-01] MEDS ORDERED: PANT20TA6 PO (10:41)
[2022-03-01] MEDS ORDERED: ATOR1TAB21 PO (10:41)
[2022-03-01] MEDS ORDERED: CLOP75TA2 PO (10:41)
[2022-03-02] MEDS ORDERED: PANTOPRAZOLE 20 MG TAB PO SCH (09:00)
== END 2022-03-01 12:57 | disposition home or self-care (01) | DRG 445 ==
LOC: M ED 10:48 → M ED INP 23:50 → M 4MAIN 02-27 00:53
PROVIDERS: ADMIT Family Medicine; ATTEND Internal Medicine
PROC: BF141ZZ Fluoroscopy of Gallbladder, Bile Ducts and Pancreatic Ducts using Low Osmolar Contrast (ICD-10-PCS; 2022-02-27)
PROC: 0F798ZZ Dilation of Common Bile Duct, Via Natural or Artificial Opening Endoscopic (ICD-10-PCS; principal; 2022-02-27 10:05)
DX: K83.1 Obstruction of bile duct (principal); I42.2 Other hypertrophic cardiomyopathy; E80.6 Other disorders of bilirubin metabolism; N18.30 Chronic kidney disease, stage 3 unspecified; J45.909 Unspecified asthma, uncomplicated; I12.9 Hypertensive chronic kidney disease with stage 1 through stage 4 chronic kidney disease, or unspecified chronic kidney disease; E78.5 Hyperlipidemia, unspecified; K21.9 Gastro-esophageal reflux disease without esophagitis; Z79.82 Long term (current) use of aspirin; Z79.899 Other long term (current) drug therapy; Z96.643 Presence of artificial hip joint, bilateral

== ENCOUNTER → 2024-03-26 | Outpatient (CLI) | payer MEDICARE ==
[~2024-03-26] MED LIST changes: +AMLO1TAB25 PO; +ATOR1TAB21 PO; +CIPR-249 PO; +CLOP75TA2 PO; +DICY-61 PO; +HYDR1TAB33 PO; +LIDO30CR18 TOP; +LOSA50TA28 PO; +ONDA-84 PO; +PANT20TA6 PO; +PANT40TA29 PO; +PEPC40TA12 PO; +POTA-298 PO; +VALS1TAB68 PO
== END ==
LOC: M PLARAD 13:25
PROVIDERS: ATTEND Internal Medicine Medical Oncology
DX: C25.8 Malignant neoplasm of overlapping sites of pancreas (principal); C78.7 Secondary malignant neoplasm of liver and intrahepatic bile duct; C79.51 Secondary malignant neoplasm of bone
CPT/HCPCS: 78815; A9552

== ENCOUNTER 2024-04-12 08:39 | Outpatient (RCR) | payer MEDICARE, SELFPAY ==
[2024-01-20 09:34] VITALS: BP 143/100; O2SAT 98
[2024-01-20 10:45] LABS: BASO # 0.1 10^3/uL (0.0-0.2); EOS # 0.1 10^3/uL (0.0-0.5); HEMATOCRIT 39.1 % (42.0-52.0); HEMOGLOBIN 13.1 g/dl (13.5-17.5); LYMPH # 1.4 10^3/uL (1.5-5.0); LYMPH % 20.5 % (24.0-44.0); MEAN CORPUSCULAR HEMOGLOBIN 34.6 pg (27.0-33.0); MEAN CORPUSCULAR HGB CONC 33.5 g/dl (32.0-36.5); MEAN CORPUSCULAR VOLUME 103.2 fl (80.0-96.0); MONO # 0.6 10^3/uL (0.0-0.8); MONO % 9.1 % (2.0-8.0); NEUTROPHILS # 4.7 10^3/uL (1.5-8.5); NEUTROPHILS % 67.1 % (36.0-66.0); PLATELET COUNT, AUTOMATED 175 10^3/uL (150-450); RED BLOOD COUNT 3.79 10^6/uL (4.30-6.10); WHITE BLOOD COUNT 6.9 10^3/uL (4.0-10.0)
[2024-01-20 11:20] LABS: ALBUMIN 3.2 G/DL (3.2-5.2); ALKALINE PHOSPHATASE 210 U/L (46-116); ALT/SGPT 78 U/L (7.0-40); AST/SGOT 73 U/L (<34); BILIRUBIN,TOTAL 0.4 MG/DL (0.3-1.2); BLOOD UREA NITROGEN 18 MG/DL (9-23); CALCIUM LEVEL 9.5 MG/DL (8.3-10.6); CARBON DIOXIDE LEVEL 31 MMOL/L (20-31); CHLORIDE LEVEL 103 MMOL/L (98-107); CREATININE FOR GFR 1.26 MG/DL (0.70-1.30); GLOMERULAR FILTRATION RATE > 60.0 (>49); GLUCOSE, FASTING 112 MG/DL (74-106); POTASSIUM SERUM 3.4 MMOL/L (3.5-5.1); SODIUM LEVEL 140 MMOL/L (136-145); TOTAL PROTEIN 6.5 G/DL (5.7-8.2)
[2024-01-20 12:13] LABS: CA19-9 TUMOR MARKER,CARBOHYDRA 6162.6 U/ML (<35.0)
[2024-02-17 10:59] LABS: BASO % 0.4 % (0.0-1.0); EOS # 0.1 10^3/uL (0.0-0.5); EOS % 1.9 % (0.0-3.0); HEMATOCRIT 36.9 % (42.0-52.0); HEMOGLOBIN 12.6 g/dl (13.5-17.5); LYMPH # 1.1 10^3/uL (1.5-5.0); LYMPH % 23.8 % (24.0-44.0); MEAN CORPUSCULAR HGB CONC 34.1 g/dl (32.0-36.5); MEAN CORPUSCULAR VOLUME 99.5 fl (80.0-96.0); MONO # 0.3 10^3/uL (0.0-0.8); MONO % 5.6 % (2.0-8.0); NEUTROPHILS # 3.2 10^3/uL (1.5-8.5); NEUTROPHILS % 68.1 % (36.0-66.0); PLATELET COUNT, AUTOMATED 158 10^3/uL (150-450); RED BLOOD COUNT 3.71 10^6/uL (4.30-6.10); WHITE BLOOD COUNT 4.7 10^3/uL (4.0-10.0)
[2024-02-17 13:32] LABS: ALBUMIN 2.9 G/DL (3.2-5.2); ALKALINE PHOSPHATASE 194 U/L (46-116); ALT/SGPT 49 U/L (7.0-40); AST/SGOT 68 U/L (<34); BILIRUBIN,TOTAL 0.3 MG/DL (0.3-1.2); BLOOD UREA NITROGEN 13 MG/DL (9-23); CA19-9 TUMOR MARKER,CARBOHYDRA 24203.8 U/ML (<35.0); CALCIUM LEVEL 8.8 MG/DL (8.3-10.6); CARBON DIOXIDE LEVEL 35 MMOL/L (20-31); CHLORIDE LEVEL 100 MMOL/L (98-107); CREATININE FOR GFR 1.24 MG/DL (0.70-1.30); GLOMERULAR FILTRATION RATE > 60.0 (>49); GLUCOSE, FASTING 125 MG/DL (74-106); POTASSIUM SERUM 2.7 MMOL/L (3.5-5.1); SODIUM LEVEL 139 MMOL/L (136-145); TOTAL PROTEIN 5.8 G/DL (5.7-8.2)
[2024-02-17 14:10] VITALS: BP 148/90; O2SAT 100
[2024-02-17] MEDS: POTASSIUM CHLORIDE 10MEQ SR TABLET PO ONE (14:31)
[2024-02-17] MEDS: KCL 10MEQ/100ML SWI (KRUN) 100 ML IV SCH (14:32)
[2024-02-17] MEDS: SODIUM CHLORIDE 0.9% INJ 10 ML SYR IV PRN (16:36)
[2024-02-20 08:27] VITALS: BP 131/97; O2SAT 97
[2024-02-21] MEDS: dexAMETHasone 4 MG TAB PO SCH (08:38)
[2024-02-21] MEDS: PROCHLORPERAZINE 5MG TAB PO SCH (08:38)
[2024-02-21 09:06] VITALS: BP 160/101; O2SAT 98
[2024-02-21 09:17] VITALS: BP 143/94
[2024-02-21] MEDS: PACLITAXEL PROTEIN BOUND IV SCH (09:58)
[2024-02-21] MEDS: GEMCITABINE IV SCH (10:59)
[2024-02-21] MEDS: NS IV SCH (10:59)
[2024-02-21] MEDS: SODIUM CHLORIDE 0.9% INJ 10 ML SYR IV PRN (11:46)
[2024-02-22] MEDS: FILGRASTIM-SNDZ 300MCG 0.5ML SYR (ZARXIO)**SC ADMINISTRATION ONLY SC ONE (14:21)
[2024-02-23] MEDS: FILGRASTIM-SNDZ 300MCG 0.5ML SYR (ZARXIO)**SC ADMINISTRATION ONLY SC ONE (14:28)
[2024-02-24] MEDS: FILGRASTIM-SNDZ 300MCG 0.5ML SYR (ZARXIO)**SC ADMINISTRATION ONLY SC ONE (14:17)
[2024-03-05] MEDS: SODIUM CHLORIDE 0.9% INJ 10 ML SYR IV PRN (10:09)
[2024-03-05 10:31] LABS: BASO % 1.2 % (0.0-1.0); EOS # 0.1 10^3/uL (0.0-0.5); EOS % 3.6 % (0.0-3.0); HEMATOCRIT 35.5 % (42.0-52.0); HEMOGLOBIN 11.8 g/dl (13.5-17.5); LYMPH # 0.8 10^3/uL (1.5-5.0); LYMPH % 32.3 % (24.0-44.0); MEAN CORPUSCULAR HEMOGLOBIN 33.4 pg (27.0-33.0); MEAN CORPUSCULAR HGB CONC 33.2 g/dl (32.0-36.5); MEAN CORPUSCULAR VOLUME 100.6 fl (80.0-96.0); MONO # 0.2 10^3/uL (0.0-0.8); MONO % 9.3 % (2.0-8.0); NEUTROPHILS # 1.3 10^3/uL (1.5-8.5); NEUTROPHILS % 53.2 % (36.0-66.0); RED BLOOD COUNT 3.53 10^6/uL (4.30-6.10); WHITE BLOOD COUNT 2.5 10^3/uL (4.0-10.0)
[2024-03-05 10:50] LABS: PLATELET COUNT, AUTOMATED 80 10^3/uL (150-450)
[2024-03-05 10:56] LABS: ALBUMIN 2.6 G/DL (3.2-5.2); ALKALINE PHOSPHATASE 260 U/L (46-116); ALT/SGPT 56 U/L (7.0-40); AST/SGOT 61 U/L (<34); BILIRUBIN,TOTAL 0.4 MG/DL (0.3-1.2); BLOOD UREA NITROGEN 6 MG/DL (9-23); CALCIUM LEVEL 8.6 MG/DL (8.3-10.6); CARBON DIOXIDE LEVEL 25 MMOL/L (20-31); CHLORIDE LEVEL 106 MMOL/L (98-107); CREATININE FOR GFR 0.97 MG/DL (0.70-1.30); GLOMERULAR FILTRATION RATE > 60.0 (>49); GLUCOSE, FASTING 98 MG/DL (74-106); POTASSIUM SERUM 3.1 MMOL/L (3.5-5.1); SODIUM LEVEL 136 MMOL/L (136-145); TOTAL PROTEIN 5.8 G/DL (5.7-8.2)
[2024-03-05 13:32] LABS: MAGNESIUM LEVEL 1.6 MG/DL (1.8-2.4)
[2024-03-06 10:10] VITALS: BP 143/93; O2SAT 99
[2024-03-06] MEDS: POTASSIUM CHLORIDE 10MEQ SR TABLET PO ONE (10:15)
[2024-03-06] MEDS: MAG SULF 1GM/100ML (MAG RUN) 100 ML IV ONE (10:15)
[2024-03-06] MEDS: KCL 10MEQ/100ML SWI (KRUN) 100 ML IV ONE (10:27)
[2024-03-07] MEDS: FILGRASTIM-SNDZ 300MCG 0.5ML SYR (ZARXIO)**SC ADMINISTRATION ONLY SC SCH (14:24)
[2024-03-08] MEDS: FILGRASTIM-SNDZ 300MCG 0.5ML SYR (ZARXIO)**SC ADMINISTRATION ONLY SC SCH (14:03)
[2024-03-09] MEDS: FILGRASTIM-SNDZ 300MCG 0.5ML SYR (ZARXIO)**SC ADMINISTRATION ONLY SC SCH (14:11)
[2024-03-12] MEDS: SODIUM CHLORIDE 0.9% INJ 10 ML SYR IV PRN (14:31)
[2024-03-12 14:58] LABS: BASO # 0.1 10^3/uL (0.0-0.2); BASO % 1.3 % (0.0-1.0); EOS # 0.1 10^3/uL (0.0-0.5); EOS % 0.7 % (0.0-3.0); HEMATOCRIT 39.4 % (42.0-52.0); HEMOGLOBIN 13.2 g/dl (13.5-17.5); LYMPH % 21.8 % (24.0-44.0); MEAN CORPUSCULAR HEMOGLOBIN 33.5 pg (27.0-33.0); MEAN CORPUSCULAR HGB CONC 33.5 g/dl (32.0-36.5); MONO # 1.2 10^3/uL (0.0-0.8); MONO % 13.4 % (2.0-8.0); NEUTROPHILS # 4.5 10^3/uL (1.5-8.5); NEUTROPHILS % 50.4 % (36.0-66.0); PLATELET COUNT, AUTOMATED 184 10^3/uL (150-450); RED BLOOD COUNT 3.94 10^6/uL (4.30-6.10)
[2024-03-12 15:47] LABS: ALBUMIN 2.7 G/DL (3.2-5.2); ALKALINE PHOSPHATASE 321 U/L (46-116); ALT/SGPT 40 U/L (7.0-40); AST/SGOT 41 U/L (<34); BILIRUBIN,TOTAL 0.3 MG/DL (0.3-1.2); BLOOD UREA NITROGEN 9 MG/DL (9-23); CALCIUM LEVEL 8.9 MG/DL (8.3-10.6); CARBON DIOXIDE LEVEL 32 MMOL/L (20-31); CHLORIDE LEVEL 103 MMOL/L (98-107); CREATININE FOR GFR 1.11 MG/DL (0.70-1.30); GLOMERULAR FILTRATION RATE > 60.0 (>49); GLUCOSE, FASTING 100 MG/DL (74-106); MAGNESIUM LEVEL 2.1 MG/DL (1.8-2.4); SODIUM LEVEL 137 MMOL/L (136-145); TOTAL PROTEIN 6.2 G/DL (5.7-8.2)
[2024-03-13 11:25] VITALS: BP 129/80; O2SAT 98
[2024-03-13] MEDS: ONDANSETRON 4MG ORAL DISINTEGRATING TAB PO ONE (11:36)
[2024-03-13] MEDS: FAMOTIDINE 20MG/2ML VIAL IV ONE (11:36)
[2024-03-13] MEDS: PACLITAXEL PROTEIN BOUND IV SCH (13:03)
[2024-03-13] MEDS: NS IV SCH (13:49)
[2024-03-13] MEDS: GEMCITABINE IV SCH (13:49)
[2024-03-13] MEDS: SODIUM CHLORIDE 0.9% INJ 10 ML SYR IV PRN (14:23)
[2024-03-14] MEDS: FILGRASTIM-SNDZ 300MCG 0.5ML SYR (ZARXIO)**SC ADMINISTRATION ONLY SC SCH (14:42)
[2024-03-15] MEDS: FILGRASTIM-SNDZ 300MCG 0.5ML SYR (ZARXIO)**SC ADMINISTRATION ONLY SC SCH (14:57)
[2024-03-16] MEDS: FILGRASTIM-SNDZ 300MCG 0.5ML SYR (ZARXIO)**SC ADMINISTRATION ONLY SC SCH (14:34)
[2024-03-26] MEDS: SODIUM CHLORIDE 0.9% INJ 10 ML SYR IV PRN (09:30)
[2024-03-26 09:41] LABS: BASO # 0.1 10^3/uL (0.0-0.2); EOS # 0.1 10^3/uL (0.0-0.5); EOS % 1.4 % (0.0-3.0); HEMATOCRIT 33.1 % (42.0-52.0); LYMPH % 19.6 % (24.0-44.0); MEAN CORPUSCULAR HEMOGLOBIN 33.7 pg (27.0-33.0); MEAN CORPUSCULAR HGB CONC 33.2 g/dl (32.0-36.5); MEAN CORPUSCULAR VOLUME 101.5 fl (80.0-96.0); MONO # 0.4 10^3/uL (0.0-0.8); MONO % 7.6 % (2.0-8.0); NEUTROPHILS # 3.4 10^3/uL (1.5-8.5); PLATELET COUNT, AUTOMATED 106 10^3/uL (150-450); RED BLOOD COUNT 3.26 10^6/uL (4.30-6.10); WHITE BLOOD COUNT 4.9 10^3/uL (4.0-10.0)
[2024-03-26 10:08] LABS: ALBUMIN 2.5 G/DL (3.2-5.2); ALKALINE PHOSPHATASE 288 U/L (46-116); ALT/SGPT 89 U/L (7.0-40); AST/SGOT 86 U/L (<34); BILIRUBIN,TOTAL 0.4 MG/DL (0.3-1.2); BLOOD UREA NITROGEN 8 MG/DL (9-23); CALCIUM LEVEL 8.8 MG/DL (8.3-10.6); CARBON DIOXIDE LEVEL 27 MMOL/L (20-31); CHLORIDE LEVEL 107 MMOL/L (98-107); CREATININE FOR GFR 0.94 MG/DL (0.70-1.30); GLOMERULAR FILTRATION RATE > 60.0 (>49); GLUCOSE, FASTING 96 MG/DL (74-106); POTASSIUM SERUM 3.8 MMOL/L (3.5-5.1); SODIUM LEVEL 137 MMOL/L (136-145); TOTAL PROTEIN 5.8 G/DL (5.7-8.2)
[2024-03-27 09:26] VITALS: BP 119/85; O2SAT 99
[2024-03-27] MEDS: ONDANSETRON 4MG ORAL DISINTEGRATING TAB PO ONE (10:23)
[2024-03-27] MEDS: FAMOTIDINE 20MG/2ML VIAL IV ONE (10:23)
[2024-03-27] MEDS: PACLITAXEL PROTEIN BOUND IV SCH (11:57)
[2024-03-27] MEDS: GEMCITABINE IV SCH (12:47)
[2024-03-27] MEDS: NS IV SCH (12:47)
[2024-03-27] MEDS: SODIUM CHLORIDE 0.9% INJ 10 ML SYR IV PRN (13:21)
[2024-03-28] MEDS: FILGRASTIM-SNDZ 300MCG 0.5ML SYR (ZARXIO)**SC ADMINISTRATION ONLY SC SCH (14:19)
[2024-03-29] MEDS: FILGRASTIM-SNDZ 300MCG 0.5ML SYR (ZARXIO)**SC ADMINISTRATION ONLY SC SCH (09:53)
[2024-03-30] MEDS: FILGRASTIM-SNDZ 300MCG 0.5ML SYR (ZARXIO)**SC ADMINISTRATION ONLY SC SCH (10:53)
[2024-04-10 09:34] LABS: BASO # 0.1 10^3/uL (0.0-0.2); BASO % 1.1 % (0.0-1.0); EOS # 0.2 10^3/uL (0.0-0.5); EOS % 3.4 % (0.0-3.0); HEMATOCRIT 33.9 % (42.0-52.0); HEMOGLOBIN 11.3 g/dl (13.5-17.5); LYMPH # 1.1 10^3/uL (1.5-5.0); LYMPH % 17.1 % (24.0-44.0); MEAN CORPUSCULAR HEMOGLOBIN 34.2 pg (27.0-33.0); MEAN CORPUSCULAR HGB CONC 33.3 g/dl (32.0-36.5); MEAN CORPUSCULAR VOLUME 102.7 fl (80.0-96.0); MONO # 0.3 10^3/uL (0.0-0.8); MONO % 4.9 % (2.0-8.0); NEUTROPHILS # 4.5 10^3/uL (1.5-8.5); PLATELET COUNT, AUTOMATED 136 10^3/uL (150-450); WHITE BLOOD COUNT 6.1 10^3/uL (4.0-10.0)
[2024-04-10 09:57] LABS: ALBUMIN 2.6 G/DL (3.2-5.2); ALKALINE PHOSPHATASE 306 U/L (46-116); ALT/SGPT 65 U/L (7.0-40); AST/SGOT 93 U/L (<34); BILIRUBIN,TOTAL 0.3 MG/DL (0.3-1.2); BLOOD UREA NITROGEN < 5 MG/DL (9-23); CARBON DIOXIDE LEVEL 25 MMOL/L (20-31); CHLORIDE LEVEL 111 MMOL/L (98-107); CREATININE FOR GFR 1.06 MG/DL (0.70-1.30); GLOMERULAR FILTRATION RATE > 60.0 (>49); GLUCOSE, FASTING 151 MG/DL (74-106); POTASSIUM SERUM 3.2 MMOL/L (3.5-5.1); SODIUM LEVEL 142 MMOL/L (136-145)
[2024-04-10 09:58] VITALS: BP 163/110; O2SAT 99
[2024-04-10] MEDS: MAG SULF 1GM/100ML (MAG RUN) 100 ML IV ONE (11:59)
[2024-04-10] MEDS: KCL 10MEQ/100ML SWI (KRUN) 100 ML IV ONE (11:59)
[2024-04-10] MEDS: ONDANSETRON 4MG ORAL DISINTEGRATING TAB PO ONE (11:59)
[2024-04-10] MEDS: FAMOTIDINE 20MG/2ML VIAL IV ONE (13:11)
[2024-04-10] MEDS: PACLITAXEL PROTEIN BOUND IV SCH (13:53)
[2024-04-10] MEDS: GEMCITABINE IV SCH (14:44)
[2024-04-10] MEDS: NS IV SCH (14:44)
[2024-04-10] MEDS: SODIUM CHLORIDE 0.9% INJ 10 ML SYR IV PRN (15:24)
[2024-04-11] MEDS: FILGRASTIM-SNDZ 300MCG 0.5ML SYR (ZARXIO)**SC ADMINISTRATION ONLY SC SCH (10:21)
[~2024-04-12] VITALS: Ht 161.3 cm; Wt 52.5 kg
[~2024-04-12 08:39] MED LIST changes: +FAMOTIDINE 20MG/2ML VIAL IV ONE; +FILGRASTIM-SNDZ 300MCG 0.5ML SYR (ZARXIO)**SC ADMINISTRATION ONLY SC ONE; +ONDANSETRON 4MG ORAL DISINTEGRATING TAB PO ONE; +PROCHLORPERAZINE 5MG TAB PO SCH; +dexAMETHasone 4 MG TAB PO SCH
[2024-04-12] MEDS: FILGRASTIM-SNDZ 300MCG 0.5ML SYR (ZARXIO)**SC ADMINISTRATION ONLY SC SCH (08:50)
== END 2024-07-28 | disposition expired ==
LOC: M ONCM 08:39
PROVIDERS: ATTEND Internal Medicine Medical Oncology
DX: C25.0 Malignant neoplasm of head of pancreas (principal); I25.10 Atherosclerotic heart disease of native coronary artery without angina pectoris; I10 Essential (primary) hypertension; Z79.82 Long term (current) use of aspirin; Z79.899 Other long term (current) drug therapy
CPT/HCPCS: 36415; 36591; 80053; 82378; 83735; 85025; 85049; 85055; 86301; 96365; 96366; 96367; 96368; 96372; 96375; 96413; 96417; G0463; J1100; J1642; J3475; J9201; J9264; Q5101